=== PATIENT | female | born 1960 | race African-American/Black ===

== ENCOUNTER 2020-07-15 00:01 | Inpatient (IN) | payer MEDICARE, MEDICAID ==
[~2020-07-15] VITALS: Ht 165.1 cm; Wt 64.0 kg
[2020-07-15] MEDS ORDERED: ASPIRIN 81MG TABLET PO ONE (00:45)
[2020-07-15] MEDS ORDERED: LORAZEPAM 0.5MG TABLET PO ONE (00:45)
[2020-07-15] MEDS ORDERED: NITROGLYCERIN 0.4MG TABLET SL SL PRN (00:45)
[2020-07-15 01:13] LABS: BASOPHILS % 1.2 % (0.0-2.0); EOSINOPHILS % 1.8 % (0.0-5.0); HEMATOCRIT. 36.9 % (36.0-48.0); HEMOGLOBIN. 12.6 g/dL (12.0-16.0); LYMPHOCYTES % 62.9 % (20.0-50.0); MEAN CORPUSCULAR HEMOGLOBIN 30.6 pg (28.0-32.0); MEAN CORPUSCULAR VOLUME 89.9 fL (81.0-99.0); MEAN PLATELET VOLUME 7.6 fl (7.4-10.4); MONOCYTES % 7.8 % (2.0-8.0); NEUTROPHILS % 26.3 % (40.0-76.0); PLATELET 273 x1000/uL (130-400); RED CELL DISTRIBUTION WIDTH 13.7 % (11.6-14.6)
[2020-07-15 01:20] LABS: CHLORIDE 101 mEq/L (98-107)
[2020-07-15 02:10] LABS: *AMPHETAMINES SCREEN URINE NEGATIVE (NEGATIVE); *BARBITURATES SCREEN URINE NEGATIVE (NEGATIVE); *BENZODIAZEPINES SCREEN URINE NEGATIVE (NEGATIVE); *COCAINE SCREEN URINE PRESUMTIVE POSITIVE (NEGATIVE)
[2020-07-15 02:11] LABS: CANNABINOID URINE SCREEN NEGATIVE (NEGATIVE); METHADONE URINE SCREEN NEGATIVE (NEGATIVE); OPIATES URINE SCREEN PRESUMTIVE POSITIVE (NEGATIVE); PHENCYCLIDINE URINE SCREEN NEGATIVE (NEGATIVE)
[2020-07-15] MEDS ORDERED: MORPHINE SULFATE 4 MG/ML CPJ (NOT FOR IM USE) IV STA (02:12)
[2020-07-15] MEDS ORDERED: ONDANSETRON HCL 4MG/2ML INJ IV STA (02:12)
[2020-07-15] MEDS ORDERED: POTASSIUM CHLORIDE 20MEQ TABLET SR PO ONE (02:15)
[2020-07-15] MEDS ORDERED: MORPHINE SULFATE 2 MG/ML CPJ (NOT FOR IM USE) IV PRN ×2 (04:15→12:45)
[2020-07-15] MEDS ORDERED: ONDANSETRON HCL 4MG/2ML INJ IV PRN (09:00)
[2020-07-15] MEDS ORDERED: ACETAMINOPHEN 325MG TABLET PO PRN (09:00)
[2020-07-15] MEDS: ASPIRIN 81MG TABLET PO SCH (10:03)
[2020-07-15 11:06] LABS: LDL CHOLESTEROL 93 mg/dL (5-100)
[2020-07-15 11:07] LABS: HDL CHOLESTEROL 50 mg/dL (40-59)
[2020-07-15 21:05] VITALS: BP 111/59
[2020-07-15 21:30] VITALS: BP 111/48
[2020-07-15 21:35] VITALS: BP 111/48
[2020-07-15] MEDS: MORPHINE SULFATE 2 MG/ML CPJ (NOT FOR IM USE) IV PRN (21:53)
[2020-07-15] MEDS ORDERED: FURO-151 MT (22:47)
[2020-07-15] MEDS ORDERED: LOSA100T32 MT (22:47)
[2020-07-15] MEDS ORDERED: CYAN10003 SL (22:58)
[2020-07-15] MEDS ORDERED: DOCU-150 MT (22:58)
[2020-07-15] MEDS ORDERED: ROSU5TAB MT (22:58)
[2020-07-15] MEDS ORDERED: ZINC50TA69 MT (22:58)
[2020-07-15] MEDS ORDERED: [UNRECOGNIZED DRUG - OTHER] (22:58)
[2020-07-15] MEDS ORDERED: CARV12.545 MT (22:58)
[2020-07-15] MEDS ORDERED: CLON1PAT11 TP (22:58)
[2020-07-15] MEDS ORDERED: CHOL400D7 MT (22:58)
[2020-07-15] MEDS ORDERED: POTA10CA42 MT (22:58)
[2020-07-15] MEDS ORDERED: ASPI-1497 MT (22:58)
[2020-07-15] MEDS ORDERED: FISH MT (22:58)
[2020-07-16] VITALS: BP 93/43
[2020-07-16] MEDS ORDERED: *PATIENT'S OWN MEDICATION STORAGE XX SCH (02:30)
[2020-07-16 04:00] VITALS: BP 93/46
[2020-07-16] MEDS: MORPHINE SULFATE 2 MG/ML CPJ (NOT FOR IM USE) IV PRN ×2 (07:02→12:02)
[2020-07-16 08:00] VITALS: BP 107/40
[2020-07-16] MEDS: ASPIRIN 81MG TABLET PO SCH (09:05)
[2020-07-16 12:00] VITALS: BP 122/54
[2020-07-16] MEDS: DILTIAZEM HCL 30MG TABLET PO SCH ×2 (14:59→22:00)
[2020-07-16 16:00] VITALS: BP 109/56
[2020-07-16] MEDS: KETOROLAC 15MG/ML VIAL IV PRN (17:36)
[2020-07-16 19:40] LABS: EOSINOPHILS % 1.7 % (0.0-5.0); HEMOGLOBIN. 12.4 g/dL (12.0-16.0); LYMPHOCYTES % 39.8 % (20.0-50.0); MEAN CORPUSCULAR HEMOGLOBIN 30.4 pg (28.0-32.0); MEAN CORPUSCULAR VOLUME 91.1 fL (81.0-99.0); MEAN PLATELET VOLUME 8.5 fl (7.4-10.4); NEUTROPHILS % 49.5 % (40.0-76.0); PLATELET 243 x1000/uL (130-400); RED BLOOD CELL COUNT 4.06 mill/uL (4.2-5.4); RED CELL DISTRIBUTION WIDTH 13.6 % (11.6-14.6)
[2020-07-16 19:42] LABS: CHLORIDE 106 mEq/L (98-107)
[2020-07-16 20:00] VITALS: BP 107/43
[2020-07-17] VITALS: BP 119/54
[2020-07-17] MEDS: KETOROLAC 15MG/ML VIAL IV PRN (00:31)
[2020-07-17 04:00] VITALS: BP 108/66
[2020-07-17] MEDS: DILTIAZEM HCL 30MG TABLET PO SCH (06:00)
[2020-07-17 08:00] VITALS: BP 118/56
[2020-07-17] MEDS: ASPIRIN 81MG TABLET PO SCH (08:23)
[2020-07-17 09:08] LABS: ABSOLUTE BASOPHILS 0.1 x10E3/uL (0.0-0.2); ABSOLUTE EOSINOPHILS 0.1 x10E3/uL (0.0-0.4); ABSOLUTE LYMPHOCYTES 2.4 x10E3/uL (0.7-3.1); ABSOLUTE MONOCYTES 0.4 x10E3/uL (0.1-0.9); ABSOLUTE NEUTROPHILS 1.7 x10E3/uL (1.4-7.0); BASOPHILS 1 % (Not Estab.); HEMATOCRIT 37.6 % (34.0-46.6); HEMOGLOBIN 11.8 g/dL (11.1-15.9); IMMATURE GRANULOCYTES 0 % (Not Estab.); LYMPHOCYTES 51 % (Not Estab.); MEAN CORPUSCULAR HGB CONC. 31.4 g/dL (31.5-35.7); MEAN CORPUSCULAR VOLUME 92 fL (79-97); MONOCYTES 8 % (Not Estab.); NEUTROPHILS 37 % (Not Estab.); PLATELETS 263 x10E3/uL (150-450); RBC 4.07 x10E6/uL (3.77-5.28); RED CELL DISTRIBUTION WIDTH 12.4 % (11.7-15.4); WBC 4.7 x10E3/uL (3.4-10.8)
[2020-07-17 12:00] VITALS: BP 118/53
[2020-07-17 12:53] VITALS: BP 118/53
[2020-07-18 10:11] LABS: % CD 3 POS. LYMPHOCYTES 71.7 % (57.5-86.2); % CD 4 POS. LYMPHOCYTES 50.2 % (30.8-58.5); % CD 8 POS. LYMPH 22.2 % (12.0-35.5); ABSOLUTE CD 3 1721 /uL (622-2402); ABSOLUTE CD 4 HELPER 1205 /uL (359-1519); ABSOLUTE CD 8 SUPPRESSOR 533 /uL (109-897); CD4/CD8 RATIO 2.26 (0.92-3.72)
== END 2020-07-17 14:10 | disposition home or self-care (01) | DRG 918 ==
LOC: ER 00:01 → EDBEDREQ 01:42 → EDBEDREQTM 01:42 → EDBEDREQSVC 01:42 → EDBEDREQ 01:43 → EDBEDREQSVC 01:43 → 6WST 03:51 → EDBEDREQTM 03:54 → EDBEDREQ 03:54 → ENRESERV 19:57
PROVIDERS: ADMIT Internal Medicine; ATTEND Internal Medicine
DX: T40.5X1A Poisoning by cocaine, accidental (unintentional), initial encounter (principal); I50.32 Chronic diastolic (congestive) heart failure; E78.00 Pure hypercholesterolemia, unspecified; E78.5 Hyperlipidemia, unspecified; E87.6 Hypokalemia; I11.0 Hypertensive heart disease with heart failure; Y92.89 Other specified places as the place of occurrence of the external cause
CPT/HCPCS: 36415; 71045; 80048; 80053; 80061; 80305; 80320; 83880; 84443; 84484; 85025; 86359; 86360; 93005; 93306; 99291; J1885; J2270; J2405; G0480

== ENCOUNTER 2022-09-01 13:47 | Emergency (ER) | payer MEDICARE, MEDICAID ==
[~2022-09-01] VITALS: Ht 149.9 cm; Wt 52.0 kg
[~2022-09-01 13:47] MED LIST: ASPI-1497 MT; CARV12.545 MT; CHOL400D7 MT; CLON1PAT11 TP; CYAN10003 SL; DOCU-150 MT; FISH MT; FURO-151 MT; LOSA100T33 MT; POTA10CA43 MT; ROSU5TAB MT; ZINC50TA69 MT; [UNRECOGNIZED DRUG - OTHER]
[2022-09-01 14:03] VITALS: BP 105/69; PULSE 67; RESP 18; TEMP 98.3; O2SAT 100
[2022-09-01 15:00] LABS: BASOPHILS % 0.5 % (0.0-2.0); EOSINOPHILS % 0.2 % (0.0-5.0); HEMATOCRIT. 37.9 % (36.0-48.0); HEMOGLOBIN. 12.8 g/dL (12.0-16.0); LYMPHOCYTES % 20.7 % (20.0-50.0); MEAN CORPUSCULAR HEMOGLOBIN 29.8 pg (28.0-32.0); MEAN CORPUSCULAR VOLUME 88.1 fL (81.0-99.0); MEAN PLATELET VOLUME 8.3 fl (7.4-10.4); MONOCYTES % 6.2 % (2.0-8.0); NEUTROPHILS % 72.4 % (40.0-76.0); PLATELET 251 x1000/uL (130-400); RED CELL DISTRIBUTION WIDTH 13.7 % (11.6-14.6)
[2022-09-01 15:00] LABS: CLARITY URINE CLEAR (CLEAR); COLOR URINE YELLOW (YELLOW); KETONES URINE NEGATIVE (NEGATIVE); LEUKOCYTE ESTERASE URINE 1+ (NEGATIVE); NITRITE URINE NEGATIVE (NEGATIVE); OCCULT BLOOD URINE NEGATIVE (NEGATIVE); PH URINE 5.5 (4.5-8.0); PROTEIN URINE NEGATIVE (NEGATIVE); SPECIFIC GRAVITY URINE 1.021 (1.005-1.030); UROBILINOGEN URINE 0.2 E.U./dL (0.2-1.0)
[2022-09-01 15:08] LABS: CHLORIDE 104 mEq/L (98-107)
== END 2022-09-01 20:46 | disposition left against medical advice (07) ==
LOC: ER 13:47
DX: Z53.21 Procedure and treatment not carried out due to patient leaving prior to being seen by health care provider (principal)
CPT/HCPCS: 36415; 71045; 80053; 81003; 81025; 84484; 85025; 93005; 99281